=== PATIENT | female | born 1955 | race Caucasian/White ===

== ENCOUNTER 2017-03-19 05:59 | Day surgery (SDC) | payer MEDICARE, MEDICAID ==
[~2017-03-19] VITALS: Ht 162.6 cm; Wt 65.0 kg
--- NOTE | 2017-03-28 07:33 | OR ---
ADMIT: 03/19/2017 RM/LOC: [facility] MR#: [id number] [address] [id number] NANCYNANCYRAMATEUSZ Jasmeet [address] [address] Operative/Delivery Room Report SEX: F AGE: 61 : 1955 SURGERY DATE: 03/19/2017 SURGEON: Ronen Quiñones MD PREOPERATIVE DIAGNOSIS: Intractable pain with successful spinal cord stimulator trial with greater than 50% alleviation of symptoms with request for permanent implant through a paddle lead. POSTOPERATIVE DIAGNOSIS: Intractable pain with successful spinal cord stimulator trial with greater than 50% alleviation of symptoms with request for permanent implant through a paddle lead. PROCEDURE: 1. Thoracic 9-10 laminectomy for placement of epidural spinal cord stimulator paddle. 2. Second incision in the left flank for placement of internal pulse generator with connection to spinal cord stimulator system with intraoperative evaluation with no sign on programming of impedance issues or problems with the system. MOVIE MACHINE OPERATOR: Kenna Lopez APRN. DESCRIPTION OF PROCEDURE: After gaining informed consent, the patient was taken to the operative theater, placed under general endotracheal anesthesia in supine position, turned prone on a Gavin table. All pressure points purposely padded prior to performing the procedure. She was prepped and draped in sterile fashion. A time-out was utilized to ascertain the correct site and side of surgery as well as other pertinent patient historical information. Counts were obtained at the beginning and end of the case with no change betwixt the two. Antibiotics were given within 1 hour of incision. Fluoroscope was brought into the field and thoracic 12 level on the right was marked with a spinal needle. Once this was then marked, the T9-10 level was delineated and an incision was then fashioned taking this down through the thoracodorsal fascia, and fashioning laminectomy with various curettes, rongeurs, and a high-speed drill. The epidural space was noted and any bleeding was pristinely corrected with hemostasis and the epidural space was delineated. After multiple glove changes throughout multiple times during this case, attention was turned to placing the paddle. This was then passed up covering the interpedicular distance between thoracic 8 and thoracic 9, which was previously stimulated segment. This appeared to be acceptably midline. Connectors were then sewn in place and sewn to the remainder of the T10 spinous process and a loop was placed and the loop was placed in the wiring and sewn down to the T9 spinous process. This was done with 0 Ethibond. This was then tunneled down to a separately fashioned incision in the left flank above the belt line. The pocket was created and an internal ADMIT: 03/19/2017 RM/LOC: [facility] MR#: [id number] [address] [place] [id number] MATEUSZ HARRIS [facility] [place] [address] Operative/Delivery Room Report SEX: F AGE: 61 : 1955 pulse generator was brought into the field and connected. Once this was screw tightened, it was evaluated with the programming set and no issues were found in the programming or in the electric continuity of the system. Once this was completed, attention was turned to closure. Multiple layers of simple interrupted 2-0 Vicryl were used both in the thoracodorsal fascia as well as deep over top of the internal pulse generator with subcutaneous simple interrupted 2-0 Vicryl and subcuticular 3-0 Stratafix on the skin. Ms. Lopez assisted with suction, retraction, and closure at the end of the case. COMPLICATIONS: None. ESTIMATED BLOOD LOSS: Charted. SPECIMEN: None. DISPOSITION: Extubated and taken to postanesthesia care unit. Ronen Quiñones MD/ coty JOB #: [id number] CC: Ronen Quiñones MD, Attending Physician Ricky Carlson PA-C, Family Physician
== END 2017-03-19 14:25 | disposition home or self-care (01) ==
LOC: SSS 05:59
PROC: 00HU0MZ Insertion of Neurostimulator Lead into Spinal Canal, Open Approach (ICD-10-PCS; principal; 2017-03-19)
PROC: 0JH70BZ Insertion of Single Array Stimulator Generator into Back Subcutaneous Tissue and Fascia, Open Approach (ICD-10-PCS; principal; 2017-03-19)
DX: G89.4 Chronic pain syndrome (principal); E11.9 Type 2 diabetes mellitus without complications; J45.909 Unspecified asthma, uncomplicated; K21.9 Gastro-esophageal reflux disease without esophagitis; I10 Essential (primary) hypertension; F17.210 Nicotine dependence, cigarettes, uncomplicated; Z79.82 Long term (current) use of aspirin; Z79.899 Other long term (current) drug therapy; Z79.891 Long term (current) use of opiate analgesic; Z88.1 Allergy status to other antibiotic agents; Z88.8 Allergy status to other drugs, medicaments and biological substances; Z90.710 Acquired absence of both cervix and uterus